=== PATIENT | female | born 1995 | race Caucasian/White ===

== ENCOUNTER 2016-06-16 23:31 | Emergency (ER) | payer BC, OTHER ==
[~2016-06-16] VITALS: Ht 152.4 cm; Wt 57.6 kg
[2016-06-16 23:40] VITALS: TEMP 37; Ht 152.4 cm; Wt 57.6 kg
[2016-06-16] MEDS ORDERED: ONDANSETRON INJ 2 MG/ML 2 ML VIAL IV STA (23:43)
[2016-06-16] MEDS ORDERED: SODIUM CHLORIDE 0.9% 1000ML 2,000 ML IV STA (23:43)
[2016-06-16 23:47] LABS: BASO % 0.1 %; BASO ABS # 0.02 K/uL (0-0.2); COMPLETE YES; HEMATOCRIT 41.2 % (37-47); IG% 0.3 %; LYMPH % 12.5 %; LYMPH ABS # 2.18 K/uL (1.2-3.4); MEAN CELL VOLUME 83.2 fL (80-100); MEAN CORPUSCULAR HEMOGLOBIN 27.7 pg (25-34); MEAN CORPUSCULAR HGB CONC 33.3 g/dl (32-36); MEAN PLATELET VOLUME 9.7 fL (7.4-10.4); MONO % 9.3 %; NEUT % 77.8 %; PLATELET COUNT 373 K/uL (130-400); RED BLOOD COUNT 4.95 M/uL (4.2-5.4); WHITE BLOOD COUNT 17.43 K/uL (4.8-10.8)
[2016-06-16] MEDS ORDERED: LORAZEPAM 0.5 MG TAB PO STA (23:48)
[2016-06-16] MEDS ORDERED: BCPILLS PO (23:52)
[2016-06-17 00:04] VITALS: O2SAT 100
[2016-06-17 00:04] LABS: BUN/CREATININE RATIO 7.3 (10-20); CALCIUM 9.9 mg/dl (8.5-10.1); CREATININE 1.2 mg/dl (0.60-1.20); POTASSIUM 3.7 mmol/L (3.5-5.1)
[2016-06-17] MEDS ORDERED: OPTIRAY 320 IV PRN (00:15)
[2016-06-17 00:23] LABS: PREG INTERNAL NEGATIVE QC NEG CLEAR BACKGROUND; PREG INTERNAL POSITIVE QC POS CONTROL LINE
[2016-06-17 02:20] LABS: PREG INTERNAL NEGATIVE QC NEG CLEAR BACKGROUND; PREG INTERNAL POSITIVE QC POS CONTROL LINE
[2016-06-17 02:22] LABS: URINE APPEARANCE CLEAR (CLEAR); URINE BILIRUBIN NEG (NEG); URINE COLOR YELLOW; URINE EPITHELIAL CELL AUTO >30 /lpf (0-5); URINE NITRITE NEG (NEG); URINE PH 7.5 (4.5-7.5); URINE SPECIFIC GRAVITY > 1.045 (1.000-1.030); UROBILINOGEN NEG (NEG); ZZUR CULT IF INDIC CLEAN CATCH YES
[2016-06-17 02:25] LABS: REVIEW REQ? NO
[2016-06-17 02:26] LABS: MANUAL MICROSCOPIC REQUIRED? NO
[2016-06-17] MEDS ORDERED: FLUCONAZOLE / NSS 100 MG in PREMIXED NSS 50 ML IV STA (03:13)
[2016-06-17] MEDS ORDERED: PIPERACILLIN/TAZOBACTAM 4.5 GM/100ML D5W IV STA (03:13)
[2016-06-17] MEDS ORDERED: SODIUM CHLORIDE 0.9% 1000ML 1,000 ML IV STA (03:13)
--- NOTE | 2016-06-17 03:30 | EMERGENCY ROOM VISIT NOTE ---
History Report prepared by Marge: Lowell Lazo Under the Supervision of: Rocky LynnO. First contact with patient: 23:35 Chief Complaint: VOMITING Stated Complaint: VOMITING History of Present Illness The patient is a 20 year old female who presents to the Emergency Room with complaints of persistent shortness of breathing beginning about 21 hours ago. She notes she has had difficulty breathing and has been vomiting up blood since 0300 this morning. She notes she has never had blood in her emesis before. She had pneumonia 3 weeks ago and took a full course of antibiotics. She indicates that her lungs currently feel similar to when she had pneumonia. The patient notes she began coughing today, though it has been unproductive. She admits to having chest pain which is worse with swallowing and breathing deeply. She denies having any abdominal pain, blood in her stool, or any urinary symptoms. She does not take any blood thinners, and notes she only takes control. No recent trauma. The patient denies having any history of asthma or COPD, but admits to having a history of anxiety for which she does not take any medications. She has not had any recent sick contact. The patient states she still has her appendix and gallbladder. No history of diabetes, hypertension, hyperlipidemia or CAD. Source of History: patient Onset: about 21 hours ago Position: other (lungs) Quality: other (shortness of breath) Timing: other (persistent) Associated Symptoms: + chest pain, + cough, + vomiting (blood), No abdominal pain, No hematochezia, No urinary symptoms Review of Systems See HPI for pertinent positives & negatives. A total of 10 systems reviewed and were otherwise negative. Past Medical & Surgical Medical Problems: (1) History of anxiety (2) History of pneumonia Social History Smoking Status: Never Smoker Marital Status: single Housing Status: lives with roommate Occupation Status: [employer] Current/Historical Medications Scheduled Control Pills ( Control Pills), 1 TAB PO DAILY Allergies Coded Allergies: No Known Allergies (Unverified , 06/16/16) Physical Exam Vital Signs Date Time Temp Pulse Resp B/P Pulse Ox O2 Delivery O2 Flow Rate FiO2 06/17/16 03:06 104 17 97 06/17/16 03:00 103/65 06/17/16 02:36 97 14 96 06/17/16 02:30 107/61 06/17/16 01:36 101 16 97 06/17/16 01:31 112 14 97 06/17/16 01:30 118/62 06/17/16 01:01 102 14 99 06/17/16 01:00 101/67 06/17/16 00:31 112 100 06/17/16 00:30 126/67 06/17/16 00:04 100 Room Air 06/17/16 00:01 121 35 100 06/17/16 00:00 98/64 06/16/16 23:40 133 06/16/16 23:40 100 Room Air 06/16/16 23:40 37.0 120 19 119/70 100 Room Air 06/16/16 23:36 119/70 Physical Exam GENERAL: Sitting up in bed, anxious, hyperventilating EYE EXAM: normal conjunctiva OROPHARYNX: no exudate, no erythema, lips, buccal mucosa, and tongue normal and mucous membranes are moist NECK: supple, no nuchal rigidity, no adenopathy, non-tender LUNGS: Clear to auscultation. Normal chest wall mechanics HEART: no murmurs, S1 normal and S2 normal ABDOMEN: abdomen soft, non-tender, normo-active bowel sounds, no masses, no rebound or guarding. BACK: Back is symmetrical on inspection and there is no deformity, no midline tenderness, no CVA tenderness. SKIN: no rashes and no bruising UPPER EXTREMITIES: upper extremities are grossly normal. LOWER EXTREMITIES: No pitting edema. NEURO EXAM: Normal sensorium, cranial nerves II-XII grossly intact, normal speech, no gross weakness of arms, no gross weakness of legs. Gross sensation intact. Medical Decision & Procedures ER Provider Diagnostic Interpretation: Radiology results as stated below per my review and the radiologist's interpretation: CHEST X-RAY per my review: Portable AP Upright One View Normal cardiac silhouette. No focal infiltrate. Linear line along the left cardiac border. Questionable pneumomediastinum. Laboratory Results 06/16/16 23:20 Red Blood Count 4.95, Mean Corpuscular Volume 83.2, Mean Corpuscular Hemoglobin 27.7, Mean Corpuscular Hemoglobin Concent 33.3, Mean Platelet Volume 9.7, Neutrophils (%) (Auto) 77.8, Lymphocytes (%) (Auto) 12.5, Monocytes (%) (Auto) 9.3, Eosinophils (%) (Auto) 0.0, Basophils (%) (Auto) 0.1, Neutrophils # (Auto) 13.55, Lymphocytes # (Auto) 2.18, Monocytes # (Auto) 1.62, Eosinophils # (Auto) 0.00, Basophils # (Auto) 0.02 06/16/16 23:20 Test 06/16/16 23:20 06/17/16 02:05 White Blood Count 17.43 K/uL (4.8-10.8) Red Blood Count 4.95 M/uL (4.2-5.4) Hemoglobin 13.7 g/dL (12.0-16.0) Hematocrit 41.2 % (37-47) Mean Corpuscular Volume 83.2 fL (80-100) Mean Corpuscular Hemoglobin 27.7 pg (25-34) Mean Corpuscular Hemoglobin Concent 33.3 g/dl (32-36) Platelet Count 373 K/uL (130-400) Mean Platelet Volume 9.7 fL (7.4-10.4) Neutrophils (%) (Auto) 77.8 % Lymphocytes (%) (Auto) 12.5 % Monocytes (%) (Auto) 9.3 % Eosinophils (%) (Auto) 0.0 % Basophils (%) (Auto) 0.1 % Neutrophils # (Auto) 13.55 K/uL (1.4-6.5) Lymphocytes # (Auto) 2.18 K/uL (1.2-3.4) Monocytes # (Auto) 1.62 K/uL (0.11-0.59) Eosinophils # (Auto) 0.00 K/uL (0-0.5) Basophils # (Auto) 0.02 K/uL (0-0.2) RDW Standard Deviation 43.1 fL (36.4-46.3) RDW Coefficient of Variation 14.2 % (11.5-14.5) Immature Granulocyte % (Auto) 0.3 % Immature Granulocyte # (Auto) 0.06 K/uL (0.00-0.02) Anion Gap 11.0 mmol/L (3-11) Est Creatinine Clear Calc Drug Dose 59.9 ml/min Estimated GFR () 75.9 Estimated GFR (Non- 65.5 BUN/Creatinine Ratio 7.3 (10-20) Calcium Level 9.9 mg/dl (8.5-10.1) Total Bilirubin 0.4 mg/dl (0.2-1) Direct Bilirubin 0.1 mg/dl (0-0.2) Aspartate Amino Transf (AST/SGOT) 26 U/L (15-37) Alanine Aminotransferase (ALT/SGPT) 35 U/L (12-78) Alkaline Phosphatase 72 U/L (45-117) Total Protein 9.0 gm/dl (6.4-8.2) Albumin 4.4 gm/dl (3.4-5.0) Lipase 449 U/L (73-393) Human Chorionic Gonadotropin, Qual NEG (NEG) Urine Color YELLOW Urine Appearance CLEAR (CLEAR) Urine pH 7.5 (4.5-7.5) Urine Specific [place] > 1.045 (1.000-1.030) Urine Protein NEG (NEG) Urine Glucose (UA) NEG (NEG) Urine Ketones 1+ (NEG) Urine Occult Blood NEG (NEG) Urine Nitrite NEG (NEG) Urine Bilirubin NEG (NEG) Urine Urobilinogen NEG (NEG) Urine Leukocyte Esterase NEG (NEG) Urine WBC (Auto) 5-10 /hpf (0-5) Urine RBC (Auto) 0-4 /hpf (0-4) Urine Hyaline Casts (Auto) 5-10 /lpf (0-5) Urine Epithelial Cells (Auto) >30 /lpf (0-5) Urine Bacteria (Auto) 1+ (NEG) Urine Test NEG (NEG) Laboratory results per my review. Medications Administered Medications (Trade) Dose Ordered Sig/Juancarlos Route Start Time Stop Time Status Last Admin Dose Admin Sodium Chloride (Nss 1000ml) 2,000 ml @ 999 mls/hr Q2H1M STAT IV 06/16/16 23:43 06/17/16 01:43 DC 06/16/16 23:54 999 MLS/HR Ondansetron HCl (Zofran Inj) 4 mg NOW STAT IV 06/16/16 23:43 06/16/16 23:44 DC 06/16/16 23:54 4 MG Lorazepam 0.5 mg 0.5 mg NOW STAT PO 06/16/16 23:48 06/16/16 23:49 DC 06/16/16 23:59 0.5 MG Sodium Chloride (Nss 1000ml) 1,000 ml @ 999 mls/hr Q1H1M STAT IV 06/17/16 03:13 06/17/16 04:13 06/17/16 03:25 999 MLS/HR Piperacillin Sod/ Tazobactam Sod (Zosyn Iv) 4.5 gm NOW STAT IV 06/17/16 03:13 06/17/16 03:15 DC 06/17/16 03:26 4.5 GM ECG Indication: vomiting Rate (beats per minute): 122 Rhythm: sinus tachycardia Findings: nonspecific-ST abn (Inferior), other (poor baseline) ED Course ED COURSE: Vital signs were reviewed and showed tachycardic The patients medical record was reviewed The above diagnostic studies were performed and reviewed. ED treatments and interventions as stated above. 2336: The patient was evaluated in room B12B. A complete history and physical examination was performed. 2343: Ordered Zofran Inj 4 mg IV, and NSS 2,000 ml @ 999 mls/hr IV. 2348: Ordered Ativan Tab 0.5 mg PO. 0215: I updated the patient. She prefers to stay close to campus. 0256: Discussed the patient's case with Lalita. []: Upon reevaluation, the patient is [].I discussed my findings with the [ patient] and [] understands and agrees with the treatment plan. Based on the patients age, coexisting illnesses, exam and lab findings the decision to treat as an [inpatient][outpatient] was made. The patient remained stable while under my care. [The patient appeared well at the time of discharge.] [The patient will be evaluated for further management.] Medical Decision Differential diagnoses includes but is not limited to pneumonia, bronchitis, COPD/Asthma exacerbation, pneumothorax, pulmonary embolism, congestive heart failure, acute coronary syndrome Patient is a 20-year-old female who presents the ER for persistent vomiting since earlier this morning. She notes that she has been vomiting blood intermittently with specks of blood to vomit that includes all blood. She denies any blood in her stool. No blood thinners. Labs show a leukocytosis of 17,000. BMP along with LFTs, bilirubin are normal. Lipase is slightly elevated at 450 which I believe is likely secondary to the vomiting. Beta hCG is negative. UA was contaminated. EKG shows a sinus tachycardia with nonspecific ST wave changes in the inferior leads. Chest x-ray supports pneumomediastinum. CT of the chest was obtained and confirms this and she has no obvious perforation. Contacted our paediatric surgeon thoracic and they are unable to accept the patient at this time as they are not in town. Called [facility] and there is no thoracic surgeon paediatric surgeon. Patient was accepted by Dr. Lay to [facility] as the patient is from that area. She was currently resting comfortably. No vomiting while in the ER. She was given Zosyn and fluconazole per thoracic surgery. She will remain nothing by mouth until transfer. Currently she is awaiting EMS transfer to [facility] by ground. Patient was signed out to Dr. Jaimes at 3:40 AM awaiting transfer. Consults Time Called: 0100 Consulting Physician: Magen Cardona Call: 0200 Attending is not in town and unable to accept patient Additional Consults: Time Called: 0210 Consulted Physician: [facility] center Additional Comments: No thoracic paediatric surgeon at [facility]. Can except to [place] if patient agrees the patient declined. Time Called: 0230 Consulted Physician: Dr. Lay Additional Comments: Agreed to accept the patient to [facility]. Patient should receive antibiotics and fluconazole prior to arrival. Impression Primary Impression: Pneumomediastinum Additional Impressions: Hematemesis Pancreatitis Vomiting Scribe Attestation The scribe's documentation has been prepared under my direction and personally reviewed by me in its entirety. I confirm that the note above accurately reflects all work, treatment, procedures, and medical decision making performed by me. Departure Information Dispostion Transfer Acute Care Facility Referrals No Doctor, Assigned (PCP) Patient Instructions My [facility] Problem Qualifiers Additional Impressions: Hematemesis Nausea presence: with nausea Qualified Codes: K92.0 - Hematemesis; R11.0 - Nausea Pancreatitis Chronicity: acute Pancreatitis type: unspecified pancreatitis type Acute pancreatitis complication: unspecified Qualified Codes: K85.90 - Acute pancreatitis without necrosis or infection, unspecified Vomiting Vomiting type: unspecified Vomiting Intractability: unspecified Nausea presence: unspecified Qualified Codes: R11.10 - Vomiting, unspecified
[2016-06-17] MEDS ORDERED: ONDANSETRON INJ 2 MG/ML 2 ML VIAL IV STA (04:26)
--- NOTE | 2016-06-17 06:03 | EMERGENCY ROOM VISIT NOTE ---
ED Visit Note First contact with patient: 06:01 This patient was signed out to me at change of shift awaiting transport to [facility]. The patient rested overnight. She did complain of some nausea and was given an additional 4 mg of IV Zofran. The patient will be transported by [facility] ambulance around 7:30 AM.
--- NOTE | 2016-06-17 06:43 | DIAGNOSTIC IMAGING REPORT ---
ADDENDUM Addendum: There is a pneumomediastinum. IMPRESSION: 1. Pneumomediastinum 2. No evidence of focal pulmonary consolidation Electronically signed by: Reji Meeks M.D. 06/17/2016 6:43 AM Dictated Date/Time: 06/17/2016 6:42 AM ORIGINAL REPORT CHEST ONE VIEW PORTABLE CLINICAL HISTORY: Shortness of breath COMPARISON STUDY: No previous studies for comparison. FINDINGS: The cardiac and mediastinal contours are normal. There is no evidence of focal pulmonary consolidation. There is no evidence of failure. No pleural effusions are visualized.[ IMPRESSION: No active disease in the chest. Electronically signed by: Reji Meeks M.D. 06/17/2016 6:40 AM Dictated Date/Time: 06/17/2016 6:40 AM
--- NOTE | 2016-06-17 06:48 | DIAGNOSTIC IMAGING REPORT ---
CT ANGIOGRAM OF THE CHEST CLINICAL HISTORY: Shortness breath, tachypnea, pleuritic chest pain. COMPARISON STUDY: Chest x-ray dated 06/16/2016 TECHNIQUE: Following the IV administration of 88 mL of Optiray-320, CT angiogram of the thorax was performed from the thoracic inlet to the lung bases utilizing the pulmonary embolus protocol. Images are reviewed in the axial, sagittal, and coronal planes. IV contrast was administered without complication. MIP imaging was performed. CT DOSE: 176.27 mGy.cm FINDINGS: There are calcified mediastinal and right hilar lymph nodes. There was no evidence of thoracic aortic dilatation. There were no pulmonary artery filling defects to indicate acute pulmonary embolism. No pleural effusions are visualized. There is a pneumomediastinum. There is interstitial pulmonary emphysema. There is no focal pulmonary consolidation. There is a calcified granuloma within superior segment of the right lower lobe. There is borderline esophageal wall thickening IMPRESSION: 1. No CT evidence of acute pulmonary embolism 2. Pneumomediastinum with interstitial pulmonary emphysema 3. Evidence of old granulomatous disease 4. Borderline esophageal wall thickening. Electronically signed by: Reji Meeks M.D. 06/17/2016 6:46 AM Dictated Date/Time: 06/17/2016 6:41 AM
[2016-06-17 07:54] VITALS: BP 95/43; PULSE 118; O2SAT 99
--- NOTE | 2016-06-19 13:17 | Pharmacy Progress Note ---
ED Pharmacist Culture FollowUp Date of Service: Jun 19, 2016. Lactobacillus and Gardnerella isolated from urine culture. Patient denied urinary symptoms. UA with significant amount of epithelial cells. Likely contaminant - no intervention required by [facility] at this time. Case discussed w Dr. Yu. Requested that results be faxed to [facility].
== END 2016-06-17 07:56 | disposition short-term general hospital (02) ==
LOC: EDBD 23:31 → C.EDB 23:32
DX: J98.2 Interstitial emphysema (principal); K92.0 Hematemesis; K86.1 Other chronic pancreatitis; R11.10 Vomiting, unspecified; R00.0 Tachycardia, unspecified; R41.9 Unspecified symptoms and signs involving cognitive functions and awareness